=== PATIENT | male | born 1945 | race African-American/Black ===

== ENCOUNTER 2018-08-31 07:22 | Inpatient (IN) | payer OTHER ==
[~2018-08-31] VITALS: Ht 167.6 cm; Wt 58.7 kg
[2018-08-31] VITALS (7 sets, daily range): BP systolic 108–133; BP diastolic 66–92
[~2018-08-31 07:22] MED LIST: ASP81EC PO; ATO40T PO; BENA5TAB5 PO; CARV3.1240 PO; CLOP75TA41 PO; FURO40TA PO; GABA-339 PO; METO2.5T11 PO; POTA10TA51 PO; SPIR25TA8 PO
[2018-08-31] MEDS ORDERED: FUROSEMIDE INJECTION 10 ML ONE (07:55)
[2018-08-31] MEDS ORDERED: TERBUTALINE SULFATE 1 MG/ML 1ML VIAL SC ONE ×2 (07:56→08:00)
[2018-08-31] MEDS ORDERED: MORPHINE SULFATE 4 MG/ML SYR/VIAL IM ONE (08:00)
[2018-08-31] MEDS ORDERED: FUROSEMIDE 20 MG/2 ML VIAL IM ONE (08:00)
[2018-08-31] MEDS ORDERED: LIDOCAINE W/ EPINEPHRINE 1% 20ML VIAL ONE (08:03)
[2018-08-31] MEDS ORDERED: MIDAZOLAM HCL 5 MG/ML-1ML VIAL ONE (08:06)
[2018-08-31] MEDS ORDERED: MORPHINE SULFATE 4 MG/ML SYR/VIAL ONE (08:18)
[2018-08-31] MEDS ORDERED: FUROSEMIDE 20 MG/2 ML VIAL IV ONE (08:30)
[2018-08-31] MEDS ORDERED: MORPHINE SULFATE 4 MG/ML SYR/VIAL IV ONE (08:30)
[2018-08-31 08:31] LABS: Eosinophils # (auto) 0 uL; Hemoglobin 14.4 g/dL (13.5-17.5); Neutrophils # (auto) 3.9 uL; Nucleated Red Blood Cells % 0.1 %
[2018-08-31 08:32] LABS: Basophils # (auto) 0.1 uL; Basophils % (auto) 1.1 % (0.0-2.0); Eosinophils % (auto) 0.5 % (0.0-7.0); Hematocrit 47.5 % (41.0-53.0); Lymphocytes # (auto) 3.3 uL; Lymphocytes % (auto) 42.4 % (10.0-50.0); Mean Corpuscular Hemoglobin 27.7 pg (28.0-32.0); Mean Corpuscular Hgb Conc. 30.3 g/dL (32.0-36.0); Mean Corpuscular Volume 91.2 fL (80.0-100.0); Monocytes # (auto) 0.4 uL; Monocytes % (auto) 5.5 % (0.0-12.0); Neutrophils % (auto) 50.5 % (37.0-80.0); Platelet Count (auto) 215 10^3/uL (140-450); Red Blood Cells 5.21 10^6/uL (4.5-5.90); Red Cell Distribution Width 19.4 % (11.8-14.3); White Blood Cell 7.8 10^3/uL (4.4-10.8)
[2018-08-31 08:56] LABS: Albumin 2.8 g/dL (3.4-5.0); BUN/Creatinine Ratio 9.6; Potassium 3.1 mmol/L (3.5-5.1)
[2018-08-31 08:58] LABS: Lactic Acid w/Reflex 8.1 mmol/L (0.4-2.0)
[2018-08-31 09:01] LABS: Bilirubin, Total 1.1 mg/dL (0.2-1.0); Total Protein 7.2 g/dL (6.4-8.2)
[2018-08-31] MEDS ORDERED: POTASSIUM EFFERVESENT TAB 25 MEQ PO ONE (11:30)
[2018-08-31] MEDS ORDERED: MORPHINE SULFATE 4 MG/ML SYR/VIAL IV PRN (11:45)
[2018-08-31] MEDS ORDERED: DEXTROSE (50%) 50ML SYRG IV PRN (11:45)
[2018-08-31] MEDS ORDERED: NITROGLYCERIN 0.4 MG SL TAB SL PRN (11:45)
[2018-08-31] MEDS ORDERED: LORazepam 0.5 MG TAB PO PRN (11:45)
[2018-08-31] MEDS ORDERED: PROMETHAZINE HCL 25 MG/ML 1ML IV PRN (11:45)
[2018-08-31] MEDS ORDERED: ACETAMINOPHEN 500 MG TAB PO PRN (11:45)
[2018-08-31] MEDS ORDERED: TEMAZEPAM 15 MG CAP PO PRN (11:45)
[2018-08-31] MEDS ORDERED: ALBUTEROL SULF 2.5 MG/0.5ML(0.5%) NEB SOLN NEB SCH (12:00)
[2018-08-31] MEDS: GABAPENTIN 300 MG CAP PO SCH ×3 (12:33→22:01)
[2018-08-31] MEDS ORDERED: SPIRONOLACTONE 25 MG TAB PO ONE (12:45)
[2018-08-31] MEDS ORDERED: NITROGLYCERIN 0.2MG/HR TOPICAL PATCH TD ONE (12:45)
[2018-08-31] MEDS ORDERED: CLOPIDOGREL BISULFATE 75 MG TAB PO ONE (12:45)
[2018-08-31] MEDS ORDERED: CARVEDILOL 3.125 MG TAB PO ONE (12:45)
[2018-08-31] MEDS ORDERED: FUROSEMIDE 40 MG/4 ML VIAL IV ONE (12:45)
[2018-08-31] MEDS ORDERED: POTASSIUM CHL 20 Meq TABLET PO ONE (12:45)
[2018-08-31] MEDS ORDERED: ENOXAPARIN SOD 40 MG/0.4 ML SYRINGE SC ONE (12:45)
[2018-08-31] MEDS ORDERED: ASPirin-EC 81 mg tab PO ONE (12:45)
[2018-08-31] MEDS: IPRATROPIUM BROM 0.5 MG/2.5ML INH SOL NEB SCH ×3 (13:20→23:26)
[2018-08-31] MEDS: SODIUM CHLOR 0.9% PF (SALINE LOCK) 10ML VIAL/SYR IV SCH ×2 (15:35→22:03)
[2018-08-31 16:56] LABS: Urine Bacteria FEW /hpf (None Seen); Urine Blood 1+ /uL (Negative); Urine Mucus FEW (None Seen); Urine Specific Gravity 1.004 (1.001-1.035); Urine WBC <1 /hpf (0 - 3)
[2018-08-31] MEDS: InsuLIN REG 1unit/0.01ml Soln (100units/ml) SC SCH ×2 (17:00→22:00)
[2018-08-31] MEDS: FUROSEMIDE 40 MG/4 ML VIAL IV SCH (18:00)
[2018-08-31] MEDS: ALBUTEROL SULF 2.5 MG/0.5ML(0.5%) NEB SOLN NEB SCH ×2 (18:08→23:26)
[2018-08-31] MEDS: ACCU-CHEK COMFORT CURVE STRIP VI SCH ×2 (18:36→22:03)
[2018-08-31] MEDS: CARVEDILOL 3.125 MG TAB PO SCH (22:02)
[2018-08-31] MEDS: ATORVASTATIN 20 MG TAB PO SCH (22:02)
[2018-09-01] VITALS (7 sets, daily range): BP systolic 99–133; BP diastolic 71–92
[2018-09-01 01:02] LABS: Basophils # (auto) 0 uL; Basophils % (auto) 0.5 % (0.0-2.0); Eosinophils # (auto) 0 uL; Eosinophils % (auto) 0.5 % (0.0-7.0); Hematocrit 39.7 % (41.0-53.0); Hemoglobin 12.7 g/dL (13.5-17.5); Lymphocytes # (auto) 1.3 uL; Lymphocytes % (auto) 17.4 % (10.0-50.0); Mean Corpuscular Hemoglobin 27.7 pg (28.0-32.0); Mean Corpuscular Volume 86.5 fL (80.0-100.0); Monocytes # (auto) 0.5 uL; Monocytes % (auto) 7.4 % (0.0-12.0); Neutrophils # (auto) 5.4 uL; Neutrophils % (auto) 74.2 % (37.0-80.0); Platelet Count (auto) 185 10^3/uL (140-450); Red Cell Distribution Width 18.6 % (11.8-14.3); White Blood Cell 7.3 10^3/uL (4.4-10.8)
[2018-09-01 01:19] LABS: Albumin 2.6 g/dL (3.4-5.0); Potassium 4.1 mmol/L (3.5-5.1)
[2018-09-01 01:21] LABS: BUN/Creatinine Ratio 17.1
[2018-09-01 01:34] LABS: Bilirubin, Total 0.9 mg/dL (0.2-1.0)
[2018-09-01] MEDS: GABAPENTIN 300 MG CAP PO SCH ×3 (05:07→22:07)
[2018-09-01] MEDS: FUROSEMIDE 40 MG/4 ML VIAL IV SCH ×2 (05:08→16:55)
[2018-09-01] MEDS: SODIUM CHLOR 0.9% PF (SALINE LOCK) 10ML VIAL/SYR IV SCH ×3 (05:08→22:06)
[2018-09-01] MEDS: IPRATROPIUM BROM 0.5 MG/2.5ML INH SOL NEB SCH ×3 (06:40→18:43)
[2018-09-01] MEDS: InsuLIN REG 1unit/0.01ml Soln (100units/ml) SC SCH ×4 (07:00→22:07)
[2018-09-01] MEDS: ACCU-CHEK COMFORT CURVE STRIP VI SCH ×4 (07:08→22:07)
[2018-09-01] MEDS ORDERED: METOLAZONE 5 MG TAB PO SCH (10:00)
[2018-09-01] MEDS ORDERED: NITROGLYCERIN 0.2MG/HR TOPICAL PATCH TD SCH (10:00)
[2018-09-01] MEDS: PANTOPRAZOLE 40 MG TAB PO SCH (10:02)
[2018-09-01] MEDS: POTASSIUM CHL 20 Meq TABLET PO SCH (10:02)
[2018-09-01] MEDS: ASPirin-EC 81 mg tab PO SCH (10:02)
[2018-09-01] MEDS: CLOPIDOGREL BISULFATE 75 MG TAB PO SCH (10:03)
[2018-09-01] MEDS: SPIRONOLACTONE 25 MG TAB PO SCH (10:03)
[2018-09-01] MEDS: DIGOXIN 0.125 MG TAB PO SCH (10:03)
[2018-09-01] MEDS: ENOXAPARIN SOD 40 MG/0.4 ML SYRINGE SC SCH (10:04)
[2018-09-01] MEDS: CARVEDILOL 3.125 MG TAB PO SCH ×2 (10:04→22:06)
[2018-09-01] MEDS: ALBUTEROL SULF 2.5 MG/0.5ML(0.5%) NEB SOLN NEB SCH ×2 (13:56→22:29)
[2018-09-01] MEDS ORDERED: NITROGLYCERIN 0.2MG/HR TOPICAL PATCH TD ONE (14:30)
[2018-09-01] MEDS: ALBUTEROL SULF 2.5 MG/0.5ML(0.5%) NEB SOLN NEB PRN ×2 (15:28→18:43)
[2018-09-01] MEDS: SACUBITRIL-VALSARTAN 24mg/26mg TAB PO SCH (22:00)
[2018-09-01] MEDS: ATORVASTATIN 20 MG TAB PO SCH (22:06)
[2018-09-02] VITALS (8 sets, daily range): BP systolic 98–130; BP diastolic 43–86
[2018-09-02] MEDS: ALBUTEROL SULF 2.5 MG/0.5ML(0.5%) NEB SOLN NEB SCH ×3 (05:54→22:33)
[2018-09-02] MEDS: IPRATROPIUM BROM 0.5 MG/2.5ML INH SOL NEB SCH ×3 (05:55→22:33)
[2018-09-02] MEDS: FUROSEMIDE 40 MG/4 ML VIAL IV SCH ×2 (06:09→17:31)
[2018-09-02] MEDS: SODIUM CHLOR 0.9% PF (SALINE LOCK) 10ML VIAL/SYR IV SCH ×3 (06:09→21:16)
[2018-09-02 06:10] LABS: Lactic Acid w/Reflex 2.3 mmol/L (0.4-2.0)
[2018-09-02] MEDS: GABAPENTIN 300 MG CAP PO SCH ×3 (06:17→21:18)
[2018-09-02 06:18] LABS: Basophils # (auto) 0.1 uL; Basophils % (auto) 1.1 % (0.0-2.0); Eosinophils # (auto) 0.1 uL; Hematocrit 42.8 % (41.0-53.0); Hemoglobin 13.9 g/dL (13.5-17.5); Lymphocytes % (auto) 32.3 % (10.0-50.0); Mean Corpuscular Hemoglobin 28.3 pg (28.0-32.0); Mean Corpuscular Hgb Conc. 32.5 g/dL (32.0-36.0); Monocytes # (auto) 0.6 uL; Monocytes % (auto) 8.9 % (0.0-12.0); Neutrophils # (auto) 3.5 uL; Neutrophils % (auto) 56.7 % (37.0-80.0); Nucleated Red Blood Cells % 0.2 %; Platelet Count (auto) 197 10^3/uL (140-450); Red Blood Cells 4.91 10^6/uL (4.5-5.90); Red Cell Distribution Width 18.3 % (11.8-14.3); White Blood Cell 6.2 10^3/uL (4.4-10.8)
[2018-09-02] MEDS: ACCU-CHEK COMFORT CURVE STRIP VI SCH ×4 (06:23→21:18)
[2018-09-02] MEDS: InsuLIN REG 1unit/0.01ml Soln (100units/ml) SC SCH ×4 (06:23→21:18)
[2018-09-02 06:33] LABS: Magnesium 2.1 mg/dL (1.6-2.6)
[2018-09-02 06:53] LABS: Alanine Aminotransferase 33 U/L (16-61); Alkaline Phosphatase 87 U/L (45-117); Anion Gap 12 (5-15); Aspartate Aminotransferase 40 U/L (15-37); BUN/Creatinine Ratio 16.4; Blood Urea Nitrogen 19 mg/dL (7-18); Carbon Dioxide 25 mmol/L (21-32); Chloride 102 mmol/L (98-107); GFR African American 80 mL/min; GFR Non-African American 66 mL/min; Glucose 76 mg/dL (74-106); Potassium 4.1 mmol/L (3.5-5.1); Sodium 139 mmol/L (136-145)
[2018-09-02 06:54] LABS: Albumin 2.6 g/dL (3.4-5.0); Bilirubin, Total 1.4 mg/dL (0.2-1.0); Calcium 8.3 mg/dL (8.5-10.1)
[2018-09-02] MEDS: CARVEDILOL 3.125 MG TAB PO SCH ×2 (10:00→21:17)
[2018-09-02] MEDS: SACUBITRIL-VALSARTAN 24mg/26mg TAB PO SCH ×2 (10:00→21:17)
[2018-09-02] MEDS ORDERED: NITROGLYCERIN 0.2MG/HR TOPICAL PATCH TD SCH (10:00)
[2018-09-02 10:13] LABS: Alcohol, Urine < 3.0 mg/dL (0-5); Amphetamine Screen, Urine NEGATIVE (NEGATIVE); Barbiturate Scree,Urine NEGATIVE (NEGATIVE); Benzodiazephine Screen, Urine NEGATIVE (NEGATIVE); Cannabinoid Screen, Urine POSITIVE (NEGATIVE); Cocaine Screen, Urine NEGATIVE (NEGATIVE); Opiate Scree,Urine NEGATIVE (NEGATIVE); Phencyclidine Screen, Urine NEGATIVE (NEGATIVE)
[2018-09-02] MEDS: ENOXAPARIN SOD 40 MG/0.4 ML SYRINGE SC SCH (10:46)
[2018-09-02] MEDS: ASPirin-EC 81 mg tab PO SCH (10:46)
[2018-09-02] MEDS: CLOPIDOGREL BISULFATE 75 MG TAB PO SCH (10:47)
[2018-09-02] MEDS: DIGOXIN 0.125 MG TAB PO SCH (10:47)
[2018-09-02] MEDS: POTASSIUM CHL 20 Meq TABLET PO SCH (10:48)
[2018-09-02] MEDS: PANTOPRAZOLE 40 MG TAB PO SCH (10:48)
[2018-09-02] MEDS: SPIRONOLACTONE 25 MG TAB PO SCH (10:48)
[2018-09-02] MEDS: ATORVASTATIN 20 MG TAB PO SCH (21:17)
[2018-09-03] VITALS: BP 102/40
[2018-09-03 04:00] VITALS: BP 103/71
[2018-09-03] MEDS: FUROSEMIDE 40 MG/4 ML VIAL IV SCH ×2 (06:09→18:00)
[2018-09-03] MEDS: GABAPENTIN 300 MG CAP PO SCH ×3 (06:11→21:58)
[2018-09-03] MEDS: SODIUM CHLOR 0.9% PF (SALINE LOCK) 10ML VIAL/SYR IV SCH ×3 (06:11→22:00)
[2018-09-03] MEDS: ACCU-CHEK COMFORT CURVE STRIP VI SCH ×4 (06:11→21:59)
[2018-09-03] MEDS: InsuLIN REG 1unit/0.01ml Soln (100units/ml) SC SCH ×4 (06:12→21:59)
[2018-09-03] MEDS: ALBUTEROL SULF 2.5 MG/0.5ML(0.5%) NEB SOLN NEB SCH ×3 (06:41→22:12)
[2018-09-03] MEDS: IPRATROPIUM BROM 0.5 MG/2.5ML INH SOL NEB SCH ×3 (06:42→22:12)
[2018-09-03 07:31] LABS: BUN/Creatinine Ratio 15.2; Calcium 8.4 mg/dL (8.5-10.1); Potassium 3.8 mmol/L (3.5-5.1)
[2018-09-03 08:00] VITALS: BP 85/64
[2018-09-03] MEDS: SPIRONOLACTONE 25 MG TAB PO SCH (09:39)
[2018-09-03] MEDS: ASPirin-EC 81 mg tab PO SCH (09:40)
[2018-09-03] MEDS: DIGOXIN 0.125 MG TAB PO SCH (09:40)
[2018-09-03] MEDS: ENOXAPARIN SOD 40 MG/0.4 ML SYRINGE SC SCH (09:41)
[2018-09-03] MEDS: CLOPIDOGREL BISULFATE 75 MG TAB PO SCH (09:41)
[2018-09-03] MEDS: PANTOPRAZOLE 40 MG TAB PO SCH (09:41)
[2018-09-03] MEDS: POTASSIUM CHL 20 Meq TABLET PO SCH (09:41)
[2018-09-03] MEDS: SACUBITRIL-VALSARTAN 24mg/26mg TAB PO SCH ×2 (09:55→21:58)
[2018-09-03] MEDS: CARVEDILOL 3.125 MG TAB PO SCH ×2 (09:55→21:59)
[2018-09-03 11:57] VITALS: BP 97/50
[2018-09-03 15:59] VITALS: BP_SYST 100; BP_SYST 92; BP_DIAS 63; BP_DIAS 71
[2018-09-03] MEDS: MAGNESIUM SULFATE 1GM/100ML 100 ML IV SCH ×2 (16:08→18:31)
[2018-09-03 20:27] VITALS: BP 90/76
[2018-09-03] MEDS: HYDROcodone-ACET 5/325MG TAB PO PRN (20:34)
[2018-09-03] MEDS: ATORVASTATIN 20 MG TAB PO SCH (21:58)
[2018-09-04] VITALS (7 sets, daily range): BP systolic 96–118; BP diastolic 53–75
[2018-09-04 05:43] LABS: Basophils # (auto) 0 uL; Basophils % (auto) 0.6 % (0.0-2.0); Eosinophils # (auto) 0.1 uL; Eosinophils % (auto) 1.3 % (0.0-7.0); Hematocrit 46.8 % (41.0-53.0); Hemoglobin 14.9 g/dL (13.5-17.5); Lymphocytes % (auto) 24.2 % (10.0-50.0); Mean Corpuscular Hemoglobin 27.9 pg (28.0-32.0); Mean Corpuscular Hgb Conc. 31.9 g/dL (32.0-36.0); Mean Corpuscular Volume 87.4 fL (80.0-100.0); Monocytes # (auto) 0.6 uL; Monocytes % (auto) 7.7 % (0.0-12.0); Neutrophils # (auto) 5.6 uL; Neutrophils % (auto) 66.2 % (37.0-80.0); Nucleated Red Blood Cells % 0.1 %; Platelet Count (auto) 248 10^3/uL (140-450); Red Blood Cells 5.35 10^6/uL (4.5-5.90); Red Cell Distribution Width 18.7 % (11.8-14.3); White Blood Cell 8.4 10^3/uL (4.4-10.8)
[2018-09-04 05:59] LABS: INR 1.17 (0.9-1.15); Partial Thromboplastin Time 27.3 sec (23.78-33.04); Prothrombin Time 12.4 sec (9.27-12.13)
[2018-09-04] MEDS: GABAPENTIN 300 MG CAP PO SCH ×3 (06:05→22:07)
[2018-09-04] MEDS: InsuLIN REG 1unit/0.01ml Soln (100units/ml) SC SCH ×4 (06:05→22:20)
[2018-09-04] MEDS: SODIUM CHLOR 0.9% PF (SALINE LOCK) 10ML VIAL/SYR IV SCH ×3 (06:05→22:06)
[2018-09-04] MEDS: ACCU-CHEK COMFORT CURVE STRIP VI SCH ×4 (06:05→22:08)
[2018-09-04] MEDS: FUROSEMIDE 40 MG/4 ML VIAL IV SCH ×2 (06:05→18:00)
[2018-09-04 06:10] LABS: BUN/Creatinine Ratio 16.4; Magnesium 2.6 mg/dL (1.6-2.6); Potassium 3.9 mmol/L (3.5-5.1)
[2018-09-04] MEDS: ALBUTEROL SULF 2.5 MG/0.5ML(0.5%) NEB SOLN NEB SCH ×3 (06:37→22:11)
[2018-09-04] MEDS: IPRATROPIUM BROM 0.5 MG/2.5ML INH SOL NEB SCH ×3 (06:37→22:11)
[2018-09-04] MEDS: CARVEDILOL 3.125 MG TAB PO SCH ×2 (10:00→22:09)
[2018-09-04] MEDS: CLOPIDOGREL BISULFATE 75 MG TAB PO SCH (10:05)
[2018-09-04] MEDS: SACUBITRIL-VALSARTAN 24mg/26mg TAB PO SCH ×2 (10:05→22:07)
[2018-09-04] MEDS: ASPirin-EC 81 mg tab PO SCH (10:08)
[2018-09-04] MEDS: PANTOPRAZOLE 40 MG TAB PO SCH (10:08)
[2018-09-04] MEDS: SPIRONOLACTONE 25 MG TAB PO SCH (10:08)
[2018-09-04] MEDS: POTASSIUM CHL 20 Meq TABLET PO SCH (10:08)
[2018-09-04] MEDS: DIGOXIN 0.125 MG TAB PO SCH (10:09)
[2018-09-04] MEDS: ENOXAPARIN SOD 40 MG/0.4 ML SYRINGE SC SCH (10:09)
[2018-09-04] MEDS: HYDROcodone-ACET 5/325MG TAB PO PRN ×2 (12:07→19:50)
[2018-09-04] MEDS: ATORVASTATIN 20 MG TAB PO SCH (22:07)
[2018-09-04] MEDS: MORPHINE SULFATE 4 MG/ML SYR/VIAL IV PRN (22:19)
[2018-09-05] VITALS: BP 95/64
[2018-09-05] MEDS: IPRATROPIUM BROM 0.5 MG/2.5ML INH SOL NEB SCH ×3 (05:51→22:36)
[2018-09-05] MEDS: ALBUTEROL SULF 2.5 MG/0.5ML(0.5%) NEB SOLN NEB SCH ×3 (05:52→22:36)
[2018-09-05] MEDS: GABAPENTIN 300 MG CAP PO SCH ×3 (06:00→21:31)
[2018-09-05 06:36] LABS: Basophils # (auto) 0.1 uL; Basophils % (auto) 0.7 % (0.0-2.0); Eosinophils # (auto) 0.1 uL; Eosinophils % (auto) 1.6 % (0.0-7.0); Hematocrit 49.8 % (41.0-53.0); Hemoglobin 16.2 g/dL (13.5-17.5); Lymphocytes # (auto) 1.7 uL; Lymphocytes % (auto) 20.1 % (10.0-50.0); Mean Corpuscular Hemoglobin 28.4 pg (28.0-32.0); Mean Corpuscular Hgb Conc. 32.5 g/dL (32.0-36.0); Mean Corpuscular Volume 87.3 fL (80.0-100.0); Monocytes # (auto) 0.7 uL; Monocytes % (auto) 7.8 % (0.0-12.0); Neutrophils % (auto) 69.8 % (37.0-80.0); Nucleated Red Blood Cells % 0.1 %; Platelet Count (auto) 296 10^3/uL (140-450); Red Cell Distribution Width 18.9 % (11.8-14.3); White Blood Cell 8.6 10^3/uL (4.4-10.8)
[2018-09-05 06:38] LABS: INR 1.21 (0.9-1.15); Partial Thromboplastin Time 28.4 sec (23.78-33.04); Prothrombin Time 12.8 sec (9.27-12.13)
[2018-09-05 06:50] LABS: Potassium 4.2 mmol/L (3.5-5.1)
[2018-09-05] MEDS: ACCU-CHEK COMFORT CURVE STRIP VI SCH ×4 (06:54→21:49)
[2018-09-05] MEDS: InsuLIN REG 1unit/0.01ml Soln (100units/ml) SC SCH ×4 (06:54→21:49)
[2018-09-05] MEDS: SODIUM CHLOR 0.9% PF (SALINE LOCK) 10ML VIAL/SYR IV SCH ×3 (06:54→21:35)
[2018-09-05 06:59] LABS: Albumin 2.3 g/dL (3.4-5.0); BUN/Creatinine Ratio 13.3; Bilirubin, Total 0.8 mg/dL (0.2-1.0)
[2018-09-05 07:02] LABS: Calcium 7.9 mg/dL (8.5-10.1)
[2018-09-05] MEDS: FUROSEMIDE 40 MG/4 ML VIAL IV SCH ×2 (07:06→17:49)
[2018-09-05 08:00] VITALS: BP 98/64
[2018-09-05] MEDS: CARVEDILOL 3.125 MG TAB PO SCH ×2 (10:00→21:32)
[2018-09-05] MEDS: CLOPIDOGREL BISULFATE 75 MG TAB PO SCH (10:00)
[2018-09-05] MEDS: SACUBITRIL-VALSARTAN 24mg/26mg TAB PO SCH ×2 (10:00→21:31)
[2018-09-05] MEDS: ENOXAPARIN SOD 40 MG/0.4 ML SYRINGE SC SCH (10:00)
[2018-09-05] MEDS: PANTOPRAZOLE 40 MG TAB PO SCH (10:00)
[2018-09-05] MEDS: DIGOXIN 0.125 MG TAB PO SCH (10:00)
[2018-09-05] MEDS: SPIRONOLACTONE 25 MG TAB PO SCH (10:00)
[2018-09-05] MEDS: ASPirin-EC 81 mg tab PO SCH (10:00)
[2018-09-05] MEDS: POTASSIUM CHL 20 Meq TABLET PO SCH (10:00)
[2018-09-05] MEDS ORDERED: CEFTRIAXONE SODIUM 2 GM in D5W 5% 50 ML IV ONE (10:45)
[2018-09-05 11:55] VITALS: BP 90/67
[2018-09-05] MEDS: MORPHINE SULFATE 4 MG/ML SYR/VIAL IV PRN ×2 (14:31→20:11)
[2018-09-05 15:54] VITALS: BP 114/65
[2018-09-05 19:54] VITALS: BP 134/83
[2018-09-05] MEDS: ATORVASTATIN 20 MG TAB PO SCH (21:31)
[2018-09-06] VITALS (7 sets, daily range): BP systolic 100–166; BP diastolic 47–88
[2018-09-06] MEDS: MORPHINE SULFATE 4 MG/ML SYR/VIAL IV PRN ×4 (02:08→22:02)
[2018-09-06] MEDS: GABAPENTIN 300 MG CAP PO SCH ×3 (05:28→22:02)
[2018-09-06] MEDS: SODIUM CHLOR 0.9% PF (SALINE LOCK) 10ML VIAL/SYR IV SCH ×3 (05:28→22:00)
[2018-09-06] MEDS: FUROSEMIDE 40 MG/4 ML VIAL IV SCH ×2 (05:28→18:00)
[2018-09-06] MEDS: InsuLIN REG 1unit/0.01ml Soln (100units/ml) SC SCH ×4 (07:00→21:56)
[2018-09-06] MEDS: IPRATROPIUM BROM 0.5 MG/2.5ML INH SOL NEB SCH ×3 (07:14→22:40)
[2018-09-06] MEDS: ALBUTEROL SULF 2.5 MG/0.5ML(0.5%) NEB SOLN NEB SCH ×3 (07:14→22:40)
[2018-09-06] MEDS: ACCU-CHEK COMFORT CURVE STRIP VI SCH ×4 (07:22→22:00)
[2018-09-06] MEDS: SPIRONOLACTONE 25 MG TAB PO SCH (09:18)
[2018-09-06] MEDS: DIGOXIN 0.125 MG TAB PO SCH (09:18)
[2018-09-06] MEDS: SACUBITRIL-VALSARTAN 24mg/26mg TAB PO SCH ×2 (09:18→22:02)
[2018-09-06] MEDS: CARVEDILOL 3.125 MG TAB PO SCH ×2 (09:19→22:00)
[2018-09-06] MEDS: CEFTRIAXONE SODIUM 2 GM in D5W 5% 50 ML IV SCH (09:19)
[2018-09-06] MEDS: PANTOPRAZOLE 40 MG TAB PO SCH (09:19)
[2018-09-06] MEDS: POTASSIUM CHL 20 Meq TABLET PO SCH (09:19)
[2018-09-06] MEDS ORDERED: ANGIOMAX 250 MG VIAL IV ONE (11:50)
[2018-09-06] MEDS ORDERED: MIDAZOLAM HCL 1MG/1ML-2 ML VIAL ONE (11:50)
[2018-09-06] MEDS ORDERED: SODIUM CHL 0.9% 0 ML ONE (11:50)
[2018-09-06] MEDS ORDERED: fentaNYL CITRATE 100 MCG/2 ML VL ONE (11:50)
[2018-09-06] MEDS ORDERED: LIDOCAINE 2%HCL (LOCAL ANESTH.) INJ 20ML MDV ONE ×2 (11:53→12:33)
[2018-09-06] MEDS ORDERED: EPINEPHrine HCL 1 MG/10 ML SYRG ONE (12:13)
[2018-09-06] MEDS ORDERED: ATROPINE SULF 1 MG/10ml SYR ONE (12:13)
[2018-09-06] MEDS ORDERED: DOPamine 1600MCG/ML D5W 0 ML IV ONE (12:28)
[2018-09-06] MEDS: ASPirin-EC 81 mg tab PO SCH (14:27)
[2018-09-06] MEDS: CLOPIDOGREL BISULFATE 75 MG TAB PO SCH (14:27)
[2018-09-06] MEDS: Pro-Stat SF 30ml Vanilla PO SCH (18:00)
[2018-09-06] MEDS: ATORVASTATIN 20 MG TAB PO SCH (22:02)
[2018-09-07] VITALS: BP 89/50
[2018-09-07] MEDS: MORPHINE SULFATE 4 MG/ML SYR/VIAL IV PRN (02:07)
[2018-09-07 04:00] VITALS: BP 90/56
[2018-09-07] MEDS: FUROSEMIDE 40 MG/4 ML VIAL IV SCH ×2 (06:00→17:59)
[2018-09-07] MEDS: ALBUTEROL SULF 2.5 MG/0.5ML(0.5%) NEB SOLN NEB SCH ×3 (06:27→22:10)
[2018-09-07] MEDS: IPRATROPIUM BROM 0.5 MG/2.5ML INH SOL NEB SCH ×3 (06:27→22:10)
[2018-09-07] MEDS: SODIUM CHLOR 0.9% PF (SALINE LOCK) 10ML VIAL/SYR IV SCH ×3 (06:51→21:37)
[2018-09-07] MEDS: GABAPENTIN 300 MG CAP PO SCH ×3 (06:51→21:38)
[2018-09-07] MEDS: InsuLIN REG 1unit/0.01ml Soln (100units/ml) SC SCH ×4 (06:52→21:52)
[2018-09-07] MEDS: ACCU-CHEK COMFORT CURVE STRIP VI SCH ×4 (06:53→21:41)
[2018-09-07 07:43] LABS: Basophils # (auto) 0.1 uL; Basophils % (auto) 0.6 % (0.0-2.0); Eosinophils # (auto) 0.2 uL; Eosinophils % (auto) 2.3 % (0.0-7.0); Hematocrit 51.3 % (41.0-53.0); Hemoglobin 16.2 g/dL (13.5-17.5); Lymphocytes # (auto) 1.5 uL; Lymphocytes % (auto) 18.3 % (10.0-50.0); Mean Corpuscular Hemoglobin 27.4 pg (28.0-32.0); Mean Corpuscular Hgb Conc. 31.5 g/dL (32.0-36.0); Monocytes # (auto) 0.8 uL; Neutrophils # (auto) 5.8 uL; Neutrophils % (auto) 69.8 % (37.0-80.0); Nucleated Red Blood Cells % 0.1 %; Platelet Count (auto) 347 10^3/uL (140-450); Red Cell Distribution Width 18.4 % (11.8-14.3); White Blood Cell 8.4 10^3/uL (4.4-10.8)
[2018-09-07 07:56] LABS: Calcium 7.9 mg/dL (8.5-10.1)
[2018-09-07 08:00] VITALS: BP 90/61
[2018-09-07] MEDS: Pro-Stat SF 30ml Vanilla PO SCH ×2 (08:00→18:00)
[2018-09-07] MEDS: POTASSIUM CHL 20 Meq TABLET PO SCH (09:44)
[2018-09-07] MEDS: CARVEDILOL 3.125 MG TAB PO SCH ×2 (09:46→21:37)
[2018-09-07] MEDS: SACUBITRIL-VALSARTAN 24mg/26mg TAB PO SCH ×2 (10:00→21:37)
[2018-09-07] MEDS: CEFTRIAXONE SODIUM 2 GM in D5W 5% 50 ML IV SCH (10:05)
[2018-09-07] MEDS: SPIRONOLACTONE 25 MG TAB PO SCH (10:07)
[2018-09-07] MEDS: DIGOXIN 0.125 MG TAB PO SCH (10:07)
[2018-09-07] MEDS: ASPirin-EC 81 mg tab PO SCH (10:07)
[2018-09-07] MEDS: CLOPIDOGREL BISULFATE 75 MG TAB PO SCH (10:07)
[2018-09-07] MEDS: PANTOPRAZOLE 40 MG TAB PO SCH (10:07)
[2018-09-07 11:50] VITALS: BP 95/50
[2018-09-07] MEDS: HYDROcodone-ACET 5/325MG TAB PO PRN (12:17)
[2018-09-07 15:41] VITALS: BP 83/58
[2018-09-07 19:50] VITALS: BP 88/50
[2018-09-07] MEDS: ATORVASTATIN 20 MG TAB PO SCH (21:37)
[2018-09-08] VITALS: BP 94/58
[2018-09-08 04:00] VITALS: BP 102/67
[2018-09-08] MEDS: FUROSEMIDE 40 MG/4 ML VIAL IV SCH ×2 (06:00→17:59)
[2018-09-08] MEDS: ACCU-CHEK COMFORT CURVE STRIP VI SCH ×4 (06:30→22:25)
[2018-09-08] MEDS: SODIUM CHLOR 0.9% PF (SALINE LOCK) 10ML VIAL/SYR IV SCH ×3 (06:30→22:25)
[2018-09-08] MEDS: InsuLIN REG 1unit/0.01ml Soln (100units/ml) SC SCH ×4 (06:30→22:00)
[2018-09-08] MEDS: GABAPENTIN 300 MG CAP PO SCH ×3 (06:30→22:37)
[2018-09-08] MEDS: ALBUTEROL SULF 2.5 MG/0.5ML(0.5%) NEB SOLN NEB SCH ×3 (06:31→22:25)
[2018-09-08] MEDS: IPRATROPIUM BROM 0.5 MG/2.5ML INH SOL NEB SCH ×3 (06:31→22:25)
[2018-09-08 08:00] VITALS: BP 84/56
[2018-09-08] MEDS: Pro-Stat SF 30ml Vanilla PO SCH ×2 (08:00→18:00)
[2018-09-08] MEDS: SACUBITRIL-VALSARTAN 24mg/26mg TAB PO SCH ×2 (10:00→22:00)
[2018-09-08] MEDS: POTASSIUM CHL 20 Meq TABLET PO SCH (10:00)
[2018-09-08] MEDS: CARVEDILOL 3.125 MG TAB PO SCH ×2 (10:00→22:00)
[2018-09-08] MEDS: CEFTRIAXONE SODIUM 2 GM in D5W 5% 50 ML IV SCH (10:05)
[2018-09-08] MEDS: CLOPIDOGREL BISULFATE 75 MG TAB PO SCH (10:07)
[2018-09-08] MEDS: SPIRONOLACTONE 25 MG TAB PO SCH (10:07)
[2018-09-08] MEDS: PANTOPRAZOLE 40 MG TAB PO SCH (10:08)
[2018-09-08] MEDS: DIGOXIN 0.125 MG TAB PO SCH (10:08)
[2018-09-08] MEDS: ASPirin-EC 81 mg tab PO SCH (10:08)
[2018-09-08 11:54] VITALS: BP 98/67
[2018-09-08] MEDS ORDERED: MIDAZOLAM HCL 5 MG/ML-1ML VIAL IV ONE (15:45)
[2018-09-08 15:50] VITALS: BP 91/65
[2018-09-08 19:47] VITALS: BP 94/59
[2018-09-08] MEDS: ATORVASTATIN 20 MG TAB PO SCH (22:36)
[2018-09-08] MEDS: HYDROcodone-ACET 5/325MG TAB PO PRN (22:38)
[2018-09-09] VITALS (7 sets, daily range): BP systolic 95–107; BP diastolic 54–67
[2018-09-09] MEDS: ALBUTEROL SULF 2.5 MG/0.5ML(0.5%) NEB SOLN NEB SCH ×3 (05:30→18:40)
[2018-09-09] MEDS: IPRATROPIUM BROM 0.5 MG/2.5ML INH SOL NEB SCH ×3 (05:30→18:40)
[2018-09-09] MEDS: FUROSEMIDE 40 MG/4 ML VIAL IV SCH ×2 (06:00→17:38)
[2018-09-09] MEDS: SODIUM CHLOR 0.9% PF (SALINE LOCK) 10ML VIAL/SYR IV SCH ×3 (06:03→21:41)
[2018-09-09] MEDS: GABAPENTIN 300 MG CAP PO SCH ×3 (06:20→21:36)
[2018-09-09] MEDS: InsuLIN REG 1unit/0.01ml Soln (100units/ml) SC SCH ×4 (06:20→21:35)
[2018-09-09] MEDS: ACCU-CHEK COMFORT CURVE STRIP VI SCH ×4 (06:20→21:32)
[2018-09-09] MEDS: Pro-Stat SF 30ml Vanilla PO SCH ×2 (09:21→17:34)
[2018-09-09] MEDS: PANTOPRAZOLE 40 MG TAB PO SCH (09:22)
[2018-09-09] MEDS: SPIRONOLACTONE 25 MG TAB PO SCH (09:22)
[2018-09-09] MEDS: ASPirin-EC 81 mg tab PO SCH (09:22)
[2018-09-09] MEDS: CLOPIDOGREL BISULFATE 75 MG TAB PO SCH (09:22)
[2018-09-09] MEDS: DIGOXIN 0.125 MG TAB PO SCH (09:23)
[2018-09-09] MEDS: POTASSIUM CHL 20 Meq TABLET PO SCH (09:23)
[2018-09-09] MEDS: SACUBITRIL-VALSARTAN 24mg/26mg TAB PO SCH ×2 (09:24→21:37)
[2018-09-09] MEDS: CARVEDILOL 3.125 MG TAB PO SCH ×2 (09:24→21:38)
[2018-09-09] MEDS: ENOXAPARIN SOD 40 MG/0.4 ML SYRINGE SC SCH (09:25)
[2018-09-09] MEDS ORDERED: cefTRIAXone 1GM/50ML D5W 0 ML IV ONE (09:31)
[2018-09-09] MEDS: CEFTRIAXONE SODIUM 2 GM in D5W 5% 50 ML IV SCH (09:34)
[2018-09-09] MEDS ORDERED: IPRATROPIUM BROM 0.5 MG/2.5ML INH SOL ONE (13:17)
[2018-09-09] MEDS ORDERED: ALBUTEROL SULF 2.5 MG/0.5ML(0.5%) NEB SOLN ONE (13:17)
[2018-09-09] MEDS: HYDROcodone-ACET 5/325MG TAB PO PRN ×2 (13:43→20:26)
[2018-09-09] MEDS: ATORVASTATIN 20 MG TAB PO SCH (21:36)
[2018-09-10] VITALS: BP 82/41
[2018-09-10 00:16] VITALS: BP 101/68
[2018-09-10 05:00] VITALS: BP 104/67
[2018-09-10] MEDS: HYDROcodone-ACET 5/325MG TAB PO PRN (05:54)
[2018-09-10] MEDS: GABAPENTIN 300 MG CAP PO SCH ×2 (05:54→14:00)
[2018-09-10] MEDS: SODIUM CHLOR 0.9% PF (SALINE LOCK) 10ML VIAL/SYR IV SCH ×2 (05:57→14:00)
[2018-09-10] MEDS: FUROSEMIDE 40 MG/4 ML VIAL IV SCH (05:57)
[2018-09-10] MEDS: ALBUTEROL SULF 2.5 MG/0.5ML(0.5%) NEB SOLN NEB SCH ×2 (06:49→14:00)
[2018-09-10] MEDS: IPRATROPIUM BROM 0.5 MG/2.5ML INH SOL NEB SCH ×2 (06:49→14:00)
[2018-09-10] MEDS: InsuLIN REG 1unit/0.01ml Soln (100units/ml) SC SCH ×2 (06:57→11:30)
[2018-09-10] MEDS: ACCU-CHEK COMFORT CURVE STRIP VI SCH ×2 (06:57→11:30)
[2018-09-10] MEDS: Pro-Stat SF 30ml Vanilla PO SCH (08:00)
[2018-09-10 08:49] VITALS: BP 101/66
[2018-09-10 09:27] LABS: BUN/Creatinine Ratio 26.3; Calcium 8.9 mg/dL (8.5-10.1); Potassium 4.4 mmol/L (3.5-5.1)
[2018-09-10] MEDS: SACUBITRIL-VALSARTAN 24mg/26mg TAB PO SCH (10:00)
[2018-09-10] MEDS: ASPirin-EC 81 mg tab PO SCH (10:00)
[2018-09-10] MEDS: SPIRONOLACTONE 25 MG TAB PO SCH (10:00)
[2018-09-10] MEDS: ENOXAPARIN SOD 40 MG/0.4 ML SYRINGE SC SCH (10:00)
[2018-09-10] MEDS: DIGOXIN 0.125 MG TAB PO SCH (10:00)
[2018-09-10] MEDS: PANTOPRAZOLE 40 MG TAB PO SCH (10:00)
[2018-09-10] MEDS: CARVEDILOL 3.125 MG TAB PO SCH (10:00)
[2018-09-10] MEDS: POTASSIUM CHL 20 Meq TABLET PO SCH (10:00)
[2018-09-10] MEDS: CEFTRIAXONE SODIUM 2 GM in D5W 5% 50 ML IV SCH (10:00)
[2018-09-10] MEDS: CLOPIDOGREL BISULFATE 75 MG TAB PO SCH (10:00)
[2018-09-10 12:03] VITALS: BP 107/75
[2018-09-10 12:39] VITALS: BP 107/75
== END 2018-09-10 14:02 | disposition home or self-care (01) | DRG 280 ==
LOC: EDBD 07:22 → ER 07:22 → TELE 07:23 → DOU IN ICU 13:13 → TELE-CENTR 09-10 00:30
PROVIDERS: ADMIT Internal Medicine; ATTEND Internal Medicine
PROC: B2111ZZ Fluoroscopy of Multiple Coronary Arteries using Low Osmolar Contrast (ICD-10-PCS; principal; 2018-09-06)
PROC: B2151ZZ Fluoroscopy of Left Heart using Low Osmolar Contrast (ICD-10-PCS; 2018-09-06)
DX: I21.4 Non-ST elevation (NSTEMI) myocardial infarction (principal); N17.0 Acute kidney failure with tubular necrosis; J96.00 Acute respiratory failure, unspecified whether with hypoxia or hypercapnia; I50.43 Acute on chronic combined systolic (congestive) and diastolic (congestive) heart failure; E43 Unspecified severe protein-calorie malnutrition; I31.3 Pericardial effusion (noninflammatory); I13.0 Hypertensive heart and chronic kidney disease with heart failure and stage 1 through stage 4 chronic kidney disease, or unspecified chronic kidney disease; I42.0 Dilated cardiomyopathy; N17.9 Acute kidney failure, unspecified; E03.9 Hypothyroidism, unspecified; E11.21 Type 2 diabetes mellitus with diabetic nephropathy; E11.22 Type 2 diabetes mellitus with diabetic chronic kidney disease; E11.65 Type 2 diabetes mellitus with hyperglycemia; E78.5 Hyperlipidemia, unspecified; E87.6 Hypokalemia; F12.90 Cannabis use, unspecified, uncomplicated; F17.210 Nicotine dependence, cigarettes, uncomplicated; J44.9 Chronic obstructive pulmonary disease, unspecified; N18.3 Chronic kidney disease, stage 3 (moderate); Z95.5 Presence of coronary angioplasty implant and graft; I50.9 Heart failure, unspecified; I51.3 Intracardiac thrombosis, not elsewhere classified; Z91.19 Patient's noncompliance with other medical treatment and regimen; I25.10 Atherosclerotic heart disease of native coronary artery without angina pectoris
CPT/HCPCS: 36415; 36600; 51702; 71045; 80048; 80053; 80162; 80307; 81001; 82550; 82805; 82962; 83036; 83605; 83735; 83880; 84443; 84484; 85025; 85610; 85730; 86850; 86900; 86901; 87040; 87070; 87077; 87081; 87186; 87205; 87804; 93005; 93306; 94640; 94660; 96372; 96374; 96375; 97116; 97163; 97530; 99152; G0378; J0696; J1815; J2250; J7060